=== PATIENT | female | born 1945 | race Caucasian/White ===

== ENCOUNTER 2021-06-05 08:06 | Outpatient (CLI) | payer MEDICARE, OTHER, SELFPAY ==
[2021-06-05 19:26] LABS: Basophils Absolute Auto 0.1 K/mm3 (0.0-0.1); Basophils Percent Auto 1.1 % (0.2-1.2); Eosinophils Absolute Auto 0.2 K/mm3 (0-0.3); Hematocrit 32.7 % (37.0-47.0); Hemoglobin 9.1 g/dL (12.0-15.0); Immature Granulocyte Absolute 0.02 K/mm3 (0.00-0.031); Immature Granulocyte Percent A 0.2 % (0-0.5); Lymphocytes Absolute Auto 2.43 K/mm3 (0.9-3.2); Lymphocytes Percent Auto 29.1 % (18.3-44.2); Mean Corpuscular HGB Conc 27.8 g/dl (32-36); Mean Corpuscular Hemoglobin 23.6 pg (26-34); Mean Corpuscular Volume 84.7 fl (80-100); Mean Platelet Volume 10.5 fl (7.4-10.4); Monocytes Absolute Auto 0.8 K/mm3 (0.1-0.6); Neutrophils Absolute Auto 4.9 K/mm3 (1.3-6.7); Neutrophils Percent Auto 58.6 % (45.5-73.1); Platelet Count Result 291 k/mm3 (150-375); Red Blood Count 3.86 M/mm3 (4.2-5.4); Red Cell Distribution Width 15.6 % (11.5-14.5); White Blood Count 8.3 K/mm3 (4.5-10.0)
[2021-06-05 19:36] LABS: Hemoglobin A1C 7.9 % (<5.7)
[2021-06-05 19:37] LABS: Alanine Aminotransferase 11 U/L (4-35); Albumin Level 3.6 g/dL (3.5-5.1); Alkaline Phosphatase 74 U/L (38-126); Anion Gap 5 mmol/L (8-16); Aspartate Amino Transferase 16 U/L (14-36); Bilirubin,Total 0.3 mg/dL (0.2-1.3); Blood Urea Nitrogen 18 mg/dL (7-17); Carbon Dioxide 29 mmol/L (22-30); Chloride 102 mmol/L (98-107); Cholesterol 239 mg/dL (0-200); Estimated Glomerular Filt Rate > 60; Glucose 119 mg/dL (65-110); HDL Direct 45 mg/dL; Potassium 4.6 mmol/L (3.4-5.0); Sodium 136 mmol/L (137-145); Triglycerides 128 mg/dL (<150)
[2021-06-05 19:41] LABS: Hypochromasia 1+ (NORMAL); Platelet Estimate Adequate (Adequate)
[2021-06-05 19:42] LABS: Anisocytosis 2+ (NORMAL)
[2021-06-05 19:45] LABS: Rheumatoid Factor < 8.6 IU/ML (<12)
[2021-06-05 19:48] LABS: LDL Cholesterol Direct 151 mg/dL
[2021-06-05 19:56] LABS: Creatinine Urine 96.7 mg/dL
[2021-06-05 20:01] LABS: MALB Creatinine Ratio 20.3 mg/g (0-30); Microalbumin Urine Random 19.6 mg/L (0-16.7)
[2021-06-08 10:09] LABS: Anti Cyclic Citrullinated Pept <16 Units (<20)
== END 2021-06-05 08:07 | disposition home or self-care (01) ==
PROVIDERS: PCP Family Medicine; Visit Provider Family Medicine
DX: E11.9 Type 2 diabetes mellitus without complications (principal); E78.5 Hyperlipidemia, unspecified; I25.10 Atherosclerotic heart disease of native coronary artery without angina pectoris; M19.90 Unspecified osteoarthritis, unspecified site; Z79.4 Long term (current) use of insulin; R53.83 Other fatigue
CPT/HCPCS: 36415; 80053; 80061; 82043; 83036; 84443; 85025; 86038; 86200; 86430

== ENCOUNTER 2021-06-07 11:33 | Outpatient (CLI) | payer MEDICARE, OTHER, SELFPAY ==
[2021-06-07 19:50] LABS: Basophils Absolute Auto 0.1 K/mm3 (0.0-0.1); Basophils Percent Auto 0.9 % (0.2-1.2); Eosinophils Absolute Auto 0.2 K/mm3 (0-0.3); Hematocrit 30.7 % (37.0-47.0); Immature Granulocyte Absolute 0.03 K/mm3 (0.00-0.031); Immature Granulocyte Percent A 0.4 % (0-0.5); Immature Reticulocyte Fraction 26.2 % (3.0-15.9); Lymphocytes Absolute Auto 2.03 K/mm3 (0.9-3.2); Lymphocytes Percent Auto 27.4 % (18.3-44.2); Mean Corpuscular HGB Conc 29.3 g/dl (32-36); Mean Corpuscular Hemoglobin 23.7 pg (26-34); Mean Platelet Volume 10.5 fl (7.4-10.4); Monocytes Absolute Auto 0.7 K/mm3 (0.1-0.6); Monocytes Percent Auto 9.1 % (2.6-8.5); Neutrophils Absolute Auto 4.5 K/mm3 (1.3-6.7); Neutrophils Percent Auto 60.2 % (45.5-73.1); Platelet Count Result 278 k/mm3 (150-375); Red Blood Count 3.79 M/mm3 (4.2-5.4); Red Cell Distribution Width 15.3 % (11.5-14.5); Reticulocyte Percent 1.67 % (0.7-4.3); Reticulocytes Absolute 0.06 B/L (32.2-175.7); White Blood Count 7.4 K/mm3 (4.5-10.0)
[2021-06-07 19:55] LABS: Iron 29 ug/dL (37-170)
[2021-06-07 20:04] LABS: Percent Iron Saturation 7 % (20-50)
== END 2021-06-07 11:34 | disposition home or self-care (01) ==
PROVIDERS: PCP Family Medicine; Visit Provider Family Medicine
DX: D64.9 Anemia, unspecified (principal)
CPT/HCPCS: 36415; 82607; 83540; 83550; 85025; 85046

== ENCOUNTER 2021-08-27 13:56 | Outpatient (CLI) | payer MEDICARE, OTHER, SELFPAY ==
[2021-08-27 14:16] LABS: Basophils Absolute Auto 0.1 K/mm3 (0.0-0.1); Basophils Percent Auto 0.6 % (0.2-1.2); Eosinophils Absolute Auto 0.2 K/mm3 (0-0.3); Eosinophils Percent Auto 1.4 % (0-4.4); Hemoglobin 9.5 g/dL (12.0-15.0); Immature Granulocyte Absolute 0.06 K/mm3 (0.00-0.031); Immature Granulocyte Percent A 0.5 % (0-0.5); Lymphocytes Absolute Auto 2.52 K/mm3 (0.9-3.2); Lymphocytes Percent Auto 22.7 % (18.3-44.2); Mean Corpuscular HGB Conc 29.7 g/dl (32-36); Mean Corpuscular Hemoglobin 23.5 pg (26-34); Mean Corpuscular Volume 79.2 fl (80-100); Monocytes Percent Auto 8.7 % (2.6-8.5); Neutrophils Absolute Auto 7.3 K/mm3 (1.3-6.7); Neutrophils Percent Auto 66.1 % (45.5-73.1); Platelet Count Result 303 k/mm3 (150-375); Red Blood Count 4.04 M/mm3 (4.2-5.4); Red Cell Distribution Width 15.7 % (11.5-14.5); White Blood Count 11.1 K/mm3 (4.5-10.0)
[2021-08-27 16:29] LABS: Iron 22 ug/dL (37-170)
[2021-08-27 16:30] LABS: Alanine Aminotransferase 16 U/L (4-35); Albumin Level 3.9 g/dL (3.5-5.1); Alkaline Phosphatase 76 U/L (38-126); Anion Gap 5 mmol/L (8-16); Aspartate Amino Transferase 21 U/L (14-36); Bilirubin,Total 0.4 mg/dL (0.2-1.3); Blood Urea Nitrogen 18 mg/dL (7-17); Calcium 9.2 mg/dL (8.4-10.2); Carbon Dioxide 31 mmol/L (22-30); Chloride 101 mmol/L (98-107); Estimated Glomerular Filt Rate 54; Glucose 131 mg/dL (65-110); Sodium 137 mmol/L (137-145)
[2021-08-27 16:40] LABS: Percent Iron Saturation 5 % (20-50)
[2021-08-27 17:06] LABS: Ferritin 7.53 ng/mL (11.1-264)
[2021-08-27 17:37] LABS: Folic Acid 11.9 ng/mL (2.76->20)
[2021-08-27 23:10] LABS: Vitamin D 25 Hydroxy 60.2 ng/mL
== END 2021-08-27 13:57 | disposition home or self-care (01) ==
PROVIDERS: PCP Family Medicine; Visit Provider Internal Medicine Hematology & Oncology
DX: D64.9 Anemia, unspecified (principal); E55.9 Vitamin D deficiency, unspecified
CPT/HCPCS: 36415; 80053; 82306; 82607; 82728; 82746; 83540; 83550; 84443; 85025

== ENCOUNTER 2021-09-05 13:45 | Outpatient (CLI) | payer MEDICARE, OTHER, SELFPAY | END 2021-09-05 13:46 | disposition home or self-care (01) | PROVIDERS: PCP Family Medicine; Visit Provider Family Medicine | DX: E11.9 Type 2 diabetes mellitus without complications (principal); Z79.4 Long term (current) use of insulin | CPT/HCPCS: 36415; 83036 ==

== ENCOUNTER 2021-11-13 10:14 | Outpatient (CLI) | payer MEDICARE, OTHER, SELFPAY ==
[2021-11-13 19:01] LABS: Hematocrit 38.8 % (37.0-47.0); Mean Corpuscular HGB Conc 30.9 g/dl (32-36); Mean Corpuscular Volume 90.7 fl (80-100); Mean Platelet Volume 10.1 fl (7.4-10.4); Platelet Count Result 234 k/mm3 (150-375); Red Blood Count 4.28 M/mm3 (4.2-5.4); Red Cell Distribution Width 19.3 % (11.5-14.5)
[2021-11-13 19:08] LABS: Iron 78 ug/dL (37-170)
[2021-11-13 19:18] LABS: Percent Iron Saturation 25 % (20-50)
[2021-11-13 20:20] LABS: Folic Acid 19.6 ng/mL (2.76->20); Vitamin B12 > 1000.0 pg/mL (239-931)
== END 2021-11-13 10:15 | disposition home or self-care (01) ==
PROVIDERS: PCP Family Medicine; Visit Provider Internal Medicine Hematology & Oncology
DX: D64.9 Anemia, unspecified (principal)
CPT/HCPCS: 36415; 82607; 82728; 82746; 83540; 83550; 85027

== ENCOUNTER 2021-12-06 14:26 | Outpatient (CLI) | payer MEDICARE, OTHER, SELFPAY ==
[2021-12-06 20:21] LABS: Anion Gap 4 mmol/L (8-16); Blood Urea Nitrogen 14 mg/dL (7-17); Calcium 9.1 mg/dL (8.4-10.2); Carbon Dioxide 32 mmol/L (22-30); Chloride 103 mmol/L (98-107); Estimated Glomerular Filt Rate > 60; Glucose 121 mg/dL (65-110); Potassium 4.2 mmol/L (3.4-5.0); Sodium 139 mmol/L (137-145)
[2021-12-06 20:59] LABS: Hemoglobin A1C 6.7 % (<5.7)
== END 2021-12-06 14:27 | disposition home or self-care (01) ==
PROVIDERS: PCP Family Medicine; Visit Provider Family Medicine
DX: E11.9 Type 2 diabetes mellitus without complications (principal); R94.4 Abnormal results of kidney function studies
CPT/HCPCS: 36415; 80048; 83036

== ENCOUNTER → 2022-01-23 02:54 | Outpatient (CLI) | payer MEDICARE, OTHER, SELFPAY ==
[2022-01-23 12:56] LABS: Influenza A QL RT-PCR Negative (Negative); Influenza B QL RT-PCR Negative (Negative); SARS-CoV-2 RNA PCR Negative
== END ==
PROVIDERS: PCP Family Medicine; Visit Provider Family Medicine
DX: J02.9 Acute pharyngitis, unspecified (principal); Z20.822 Contact with and (suspected) exposure to COVID-19
CPT/HCPCS: 87502; C9803; U0003; U0005

== ENCOUNTER 2022-02-13 00:09 | Day surgery (SDC) | payer MEDICARE, OTHER, SELFPAY ==
[2021-11-08 13:49] VITALS: BMI 44.2
[2021-12-28 15:11] VITALS: BMI 43.2
[2022-01-15 13:53] VITALS: BMI 43.2
[2022-02-01 10:04] VITALS: BMI 43.2
--- NOTE | 2022-02-13 09:14 | WPDANESEPPF ---
Anes - Initial Pre Proc Eval Procedure: Operation Date: 02/13/22 13:15 Proposed Procedures p Esophagogastroduodenoscopy & Colonoscopy - Hector Burrell MD Date/Time: 02/13/22 09:14 Surgeon: Hector Burrell MD Pre Op Diagnosis: TABATHA Patient Data Age: 76 Gender: F Height: 1.75 m Weight: 133 kg Allergies Allergy/AdvReac Type Severity Reaction Status Date / Time morphine Allergy Unknown Other Verified 02/13/22 11:53 Bqlcupb-PYK-SvA Reductase Allergy Unknown Unknown Verified 02/13/22 11:53 Inhibitor [Fjoyewr-Yoq-Sqx Reductase Inhibitor] Home Medications Medication Instructions Recorded Confirmed Type aspirin 81 mg tablet,delayed 81 mg PO DAILY 10/05/19 02/13/22 History release cholecalciferol (vitamin D3) 125 5,000 unit PO DAILY tablet 10/05/19 02/13/22 History mcg (5,000 unit) tablet omega-3 fatty acids 1,000 mg 1,000 mg PO BID 10/05/19 02/13/22 History capsule metformin 1,000 mg tablet 1,000 mg PO BID #180 tablet 06/04/21 02/13/22 Rx insulin NPH and regular human 33 unit SUB-Q BID 11/08/21 02/13/22 History [Novolin 70/30 U-100 Insulin] amlodipine 2.5 mg tablet 2.5 mg PO DAILY #90 tablet 11/22/21 02/13/22 Rx losartan 100 1 tablet PO DAILY #90 tablet 11/22/21 02/13/22 Rx mg-hydrochlorothiazide 25 mg tablet blood pressure test kit-large #1 ea 12/06/21 02/13/22 Rx clobetasol 0.05 % topical cream 1 applic TOPICAL BID 14 Days #30 g 12/17/21 02/13/22 Rx nystatin 100,000 unit/gram topical 1 applic TOPICAL BID PRN #15 g 12/17/21 02/13/22 Rx powder clonazepam [Klonopin] 0.25 mg PO QHS PRN 12/28/21 02/13/22 History folic acid 1 tab-cap PO DAILY 12/28/21 02/13/22 History nystatin-triamcinolone 100,000 1 applic TOPICAL BID PRN #30 g 01/14/22 02/13/22 Rx unit/g-0.1 % topical cream albuterol sulfate 90 mcg/actuation 1 inh INHALATION Q4H PRN #8.5 g 01/24/22 02/13/22 Rx aerosol inhaler azithromycin 250 mg tablet See Rx Instructions PO .COMPLEX #6 01/24/22 02/13/22 Rx tablet guaifenesin 1,200 mg tablet, 1,200 mg PO BID #30 tablet 01/24/22 02/13/22 Rx extended release 12 hr pantoprazole 40 mg tablet,delayed 40 mg PO BID #180 tablet 02/10/22 02/13/22 Rx release Patient hx anesthesia problems: none Family hx anesthesia problems: none Results Review: All pre-operative results and documents have been reviewed as part of the pre-operative evaluation. [facility] Past Medical History Medical History (Updated 02/13/22 @ 09:16 by Ronn Pat MD) Allergies Arthritis Congestive heart failure COPD (chronic obstructive pulmonary disease) Coronary artery disease Depression Dyslipidemia Endometriosis Femur fracture GERD (gastroesophageal reflux disease) Hypertension Morbid obesity with BMI of 40.0-44.9, adult EDWIN (obstructive sleep apnea) Rheumatoid arthritis Type 2 diabetes mellitus Surgical History Surgical History (Updated 02/13/22 @ 09:16 by Ronn Pat MD) H/O dilation and curettage H/O heart artery stent H/O heart bypass surgery H/O total hysterectomy History of cholecystectomy History of hip surgery S/P CABG (coronary artery bypass graft) Family History Family History Grandparent Diabetes mellitus Family history of cardiovascular disease Family history of malignant neoplasm Breast cancer Mother Diabetes mellitus Family history of chronic obstructive pulmonary disease Family history of congestive heart failure Father Family history of cardiovascular disease Sibling Breast cancer Hypertension Heart disease Social History Social History Smoking packs per day: 1 Smoking cigarettes per day: 20.0 Years smoked: 33 Smoking pack-years: 33.00 Smoking status: Former smoker Tobacco type: cigarettes Second hand tobacco smoke exposure: No Alcohol intake: never Substance use: never Substance u
[2022-02-13 11:54] VITALS: BP 192/85; PULSE 103; RESP 22; TEMP 36.8; O2SAT 98; BMI 42.7
[2022-02-13 12:01] LABS: Glucose Point of Care 186 mg/dl (65-105)
[2022-02-13] MEDS: LACTATED RINGERS 1,000 ML 150 ML IV CONT (12:13)
--- NOTE | 2022-02-13 13:09 | PM.HPGS ---
History of Present Illness History of Present Illness Consent: Risks, benefits, and alternatives have been discussed and questions answered. Patient agrees to proceed with procedure. Chief complaint: ASYA Narrative: Kristie Mckay is a 76 year old female with asya, also loose stools and if she does not make it on time to restroom then will have accident. Her last EGD and colonoscopy were in 2010 Review of Systems Constitutional: Constitutional: Denies headache(s) and Denies weakness Eyes: Eyes: Denies blurry vision ENT: Reports Normal hearing present, Denies headache(s) and Denies neck pain Cardiovascular: Cardiovascular: Denies chest pain and Denies dyspnea Respiratory: Respiratory: Denies dyspnea Gastrointestinal: Gastrointestinal: Reports no additional gastrointestinal complaints Genitourinary: Genitourinary: Denies dysuria Musculoskeletal: Musculoskeletal: Denies neck pain Integumentary/Breasts: Skin/Breast: Denies dry skin Neurologic: Reports Normal hearing present, Denies headache(s) and Denies weakness Psychiatric: Psychiatric: Denies anxiety Endocrine: Endocrine: Denies change in body appearance Hematologic/Lymphatic: Hematologic/Lymphatic: Denies easy bleeding Allergic/Immunologic: Allergic/Immunologic: Denies urticaria PMFSH Past Medical History Medical History (Updated 02/13/22 @ 09:16 by oRnn Pat MD) Allergies Arthritis Congestive heart failure COPD (chronic obstructive pulmonary disease) Coronary artery disease Depression Dyslipidemia Endometriosis Femur fracture GERD (gastroesophageal reflux disease) Hypertension Morbid obesity with BMI of 40.0-44.9, adult EDWIN (obstructive sleep apnea) Rheumatoid arthritis Type 2 diabetes mellitus Surgical History Surgical History (Updated 02/13/22 @ 09:16 by Ronn Pat MD) H/O dilation and curettage H/O heart artery stent H/O heart bypass surgery H/O total hysterectomy History of cholecystectomy History of hip surgery S/P CABG (coronary artery bypass graft) Family History Family History Grandparent Diabetes mellitus Family history of cardiovascular disease Family history of malignant neoplasm Breast cancer Mother Diabetes mellitus Family history of chronic obstructive pulmonary disease Family history of congestive heart failure Father Family history of cardiovascular disease Sibling Breast cancer Hypertension Heart disease Social History Social History Smoking packs per day: 1 Smoking cigarettes per day: 20.0 Years smoked: 33 Smoking pack-years: 33.00 Smoking status: Former smoker Tobacco type: cigarettes Second hand tobacco smoke exposure: No Alcohol intake: never Substance use: never Substance use type: does not use Living arrangements: with family Spiritual care concerns: No Meds Home Medications and Allergies Home Medications Medication Instructions Recorded Confirmed Type aspirin 81 mg tablet,delayed 81 mg PO DAILY 10/05/19 02/13/22 History release cholecalciferol (vitamin D3) 125 5,000 unit PO DAILY tablet 10/05/19 02/13/22 History mcg (5,000 unit) tablet omega-3 fatty acids 1,000 mg 1,000 mg PO BID 10/05/19 02/13/22 History capsule metformin 1,000 mg tablet 1,000 mg PO BID #180 tablet 06/04/21 02/13/22 Rx insulin NPH and regular human 33 unit SUB-Q BID 11/08/21 02/13/22 History [Novolin 70/30 U-100 Insulin] amlodipine 2.5 mg tablet 2.5 mg PO DAILY #90 tablet 11/22/21 02/13/22 Rx losartan 100 1 tablet PO DAILY #90 tablet 11/22/21 02/13/22 Rx mg-hydrochlorothiazide 25 mg tablet blood pressure test kit-large #1 ea 12/06/21 02/13/22 Rx clobetasol 0.05 % topical cream 1 applic TOPICAL BID 14 Days #30 g 12/17/21 02/13/22 Rx nystatin 100,000 unit/gram topical 1 applic TOPICAL BID PRN #15 g 12/17/21 02/13/22 Rx powder clonazepam [Klonopin] 0.
[2022-02-13] MEDS: BENZOCAINE (*SP) 60 ML SPRAY CAN (HURRICAINE) 1 SPRAY MUCOUS MEM (13:14)
--- NOTE | 2022-02-13 13:26 | SUR.OPER ---
EGD ENDED AT 1319, COLONOSCOPY BEGAN AT 1324.
[2022-02-13 13:48] VITALS: BP 133/63; PULSE 92; RESP 33; O2SAT 97
[2022-02-13 13:58] VITALS: BP 133/72; PULSE 92; RESP 22; O2SAT 98
[2022-02-13 14:08] VITALS: BP 152/73; PULSE 83; RESP 17; O2SAT 100
[2022-02-13 14:14] LABS: Glucose Point of Care 179 mg/dl (65-105)
== END 2022-02-13 14:25 | disposition home or self-care (01) ==
PROVIDERS: PCP Family Medicine; Visit Provider Internal Medicine Gastroenterology
PROC: 0DJ08ZZ Inspection of Upper Intestinal Tract, Via Natural or Artificial Opening Endoscopic (ICD-10-PCS; CPT 43235; principal; 2022-02-13 13:15)
DX: Z12.11 Encounter for screening for malignant neoplasm of colon (principal); D50.9 Iron deficiency anemia, unspecified; R15.9 Full incontinence of feces; K57.30 Diverticulosis of large intestine without perforation or abscess without bleeding; K64.8 Other hemorrhoids; D12.2 Benign neoplasm of ascending colon; D12.3 Benign neoplasm of transverse colon; I11.0 Hypertensive heart disease with heart failure; I50.9 Heart failure, unspecified; I25.10 Atherosclerotic heart disease of native coronary artery without angina pectoris; J44.9 Chronic obstructive pulmonary disease, unspecified; E78.5 Hyperlipidemia, unspecified; K21.9 Gastro-esophageal reflux disease without esophagitis; E11.9 Type 2 diabetes mellitus without complications; M06.9 Rheumatoid arthritis, unspecified; G47.33 Obstructive sleep apnea (adult) (pediatric); F32.9 Major depressive disorder, single episode, unspecified; E66.01 Morbid (severe) obesity due to excess calories; Z68.41 Body mass index [BMI] 40.0-44.9, adult; Z95.5 Presence of coronary angioplasty implant and graft; Z95.1 Presence of aortocoronary bypass graft; Z87.891 Personal history of nicotine dependence; Z79.82 Long term (current) use of aspirin; Z79.84 Long term (current) use of oral hypoglycemic drugs; Z79.4 Long term (current) use of insulin; Z79.51 Long term (current) use of inhaled steroids
CPT/HCPCS: 45385; 45380; 43239; 82948; 88305; J2704; J7120

== ENCOUNTER 2022-02-18 13:12 | Outpatient (CLI) | payer MEDICARE, OTHER, SELFPAY ==
[2022-02-18 18:45] LABS: Basophils Absolute Auto 0.1 K/mm3 (0.0-0.1); Basophils Percent Auto 0.8 % (0.2-1.2); Eosinophils Absolute Auto 0.3 K/mm3 (0-0.3); Eosinophils Percent Auto 2.8 % (0-4.4); Hematocrit 38.7 % (37.0-47.0); Hemoglobin 12.7 g/dL (12.0-15.0); Immature Granulocyte Absolute 0.03 K/mm3 (0.00-0.031); Immature Granulocyte Percent A 0.3 % (0-0.5); Lymphocytes Absolute Auto 2.36 K/mm3 (0.9-3.2); Lymphocytes Percent Auto 26.7 % (18.3-44.2); Mean Corpuscular HGB Conc 32.8 g/dl (32-36); Mean Corpuscular Hemoglobin 30.5 pg (26-34); Mean Platelet Volume 10.3 fl (7.4-10.4); Monocytes Absolute Auto 0.8 K/mm3 (0.1-0.6); Monocytes Percent Auto 9.5 % (2.6-8.5); Neutrophils Absolute Auto 5.3 K/mm3 (1.3-6.7); Neutrophils Percent Auto 59.9 % (45.5-73.1); Platelet Count Result 216 k/mm3 (150-375); Red Blood Count 4.16 M/mm3 (4.2-5.4); Red Cell Distribution Width 13.3 % (11.5-14.5); White Blood Count 8.8 K/mm3 (4.5-10.0)
[2022-02-18 19:00] LABS: Iron 75 ug/dL (37-170)
[2022-02-18 19:09] LABS: Percent Iron Saturation 22 % (20-50)
[2022-02-18 20:26] LABS: Folic Acid > 20.0 ng/mL (2.76->20)
== END 2022-02-18 13:13 | disposition home or self-care (01) ==
LOC: ANHBWCLAB 13:15
PROVIDERS: PCP Family Medicine; Visit Provider Internal Medicine Hematology & Oncology
DX: D64.9 Anemia, unspecified (principal)
CPT/HCPCS: 36415; 82607; 82728; 82746; 83540; 83550; 85025

== ENCOUNTER 2022-07-29 08:40 | Outpatient (CLI) | payer MEDICARE, OTHER, SELFPAY ==
[2022-07-29 19:50] LABS: Anion Gap 6 mmol/L (8-16); Blood Urea Nitrogen 18 mg/dL (7-17); Calcium 9.1 mg/dL (8.4-10.2); Carbon Dioxide 31 mmol/L (22-30); Chloride 99 mmol/L (98-107); Estimated Glomerular Filt Rate 54; Glucose 137 mg/dL (65-110); Potassium 4.6 mmol/L (3.4-5.0); Sodium 136 mmol/L (137-145)
[2022-07-29 20:06] LABS: Iron 97 ug/dL (37-170)
[2022-07-29 20:31] LABS: Percent Iron Saturation 25 % (20-50)
[2022-07-29 20:47] LABS: Basophils Absolute Auto 0.1 K/mm3 (0.0-0.1); Basophils Percent Auto 0.8 % (0.2-1.2); Eosinophils Absolute Auto 0.2 K/mm3 (0-0.3); Hematocrit 41.2 % (37.0-47.0); Hemoglobin 12.8 g/dL (12.0-15.0); Immature Granulocyte Absolute 0.02 K/mm3 (0.00-0.031); Immature Granulocyte Percent A 0.2 % (0-0.5); Lymphocytes Absolute Auto 2.46 K/mm3 (0.9-3.2); Lymphocytes Percent Auto 27.4 % (18.3-44.2); Mean Corpuscular HGB Conc 31.1 g/dl (32-36); Mean Corpuscular Hemoglobin 30.2 pg (26-34); Mean Corpuscular Volume 97.2 fl (80-100); Mean Platelet Volume 10.4 fl (7.4-10.4); Monocytes Absolute Auto 0.8 K/mm3 (0.1-0.6); Monocytes Percent Auto 8.7 % (2.6-8.5); Neutrophils Absolute Auto 5.5 K/mm3 (1.3-6.7); Neutrophils Percent Auto 60.9 % (45.5-73.1); Platelet Count Result 267 k/mm3 (150-375); Red Blood Count 4.24 M/mm3 (4.2-5.4); Red Cell Distribution Width 13.5 % (11.5-14.5)
[2022-07-29 21:31] LABS: Folic Acid > 20.0 ng/mL (2.76->20)
== END 2022-07-29 08:41 | disposition home or self-care (01) ==
PROVIDERS: PCP Family Medicine; Visit Provider Internal Medicine Hematology & Oncology
DX: D64.9 Anemia, unspecified (principal)
CPT/HCPCS: 36415; 80048; 82607; 82728; 82746; 83540; 83550; 85025

== ENCOUNTER 2022-09-27 07:47 | Outpatient (CLI) | payer MEDICARE, OTHER, SELFPAY ==
[2022-09-27 19:13] LABS: Iron 57 ug/dL (37-170)
[2022-09-27 19:18] LABS: Hemoglobin A1C 7.2 % (<5.7)
[2022-09-27 19:22] LABS: Percent Iron Saturation 15 % (20-50)
[2022-09-27 19:29] LABS: Creatinine Urine 198.6 mg/dL
[2022-09-27 19:35] LABS: MALB Creatinine Ratio 7.6 mg/g (0-30)
== END 2022-09-27 07:48 | disposition home or self-care (01) ==
PROVIDERS: PCP Family Medicine; Visit Provider Internal Medicine Cardiovascular Disease
DX: E53.8 Deficiency of other specified B group vitamins (principal); I45.10 Unspecified right bundle-branch block; K57.30 Diverticulosis of large intestine without perforation or abscess without bleeding; G62.9 Polyneuropathy, unspecified; Z13.9 Encounter for screening, unspecified; E61.1 Iron deficiency; I50.32 Chronic diastolic (congestive) heart failure
CPT/HCPCS: 36415; 82043; 82728; 83036; 83540; 83550

== ENCOUNTER 2022-10-22 12:41 | Outpatient (NON) | payer MEDICARE, OTHER, SELFPAY | END 2022-10-22 12:42 | disposition home or self-care (01) | LOC: ANHLAB 10-23 12:42 | PROVIDERS: PCP Family Medicine; Visit Provider Nurse Practitioner | DX: N60.81 Other benign mammary dysplasias of right breast (principal); L57.0 Actinic keratosis | CPT/HCPCS: 88305 ==

== ENCOUNTER 2022-11-05 16:12 | Outpatient (NON) | payer MEDICARE, OTHER, SELFPAY | END 2022-11-05 16:13 | disposition home or self-care (01) | LOC: ANHLAB 11-06 16:15 | PROVIDERS: PCP Family Medicine; Visit Provider Nurse Practitioner | DX: L72.8 Other follicular cysts of the skin and subcutaneous tissue (principal) | CPT/HCPCS: 88304; 88342 ==

== ENCOUNTER 2023-02-20 11:50 | Outpatient (CLI) | payer MEDICARE, OTHER, SELFPAY ==
[2023-02-20 19:46] LABS: Hemoglobin A1C 6.3 % (<5.7)
== END 2023-02-20 11:51 | disposition home or self-care (01) ==
PROVIDERS: PCP Family Medicine; Visit Provider Nurse Practitioner Family
DX: E11.9 Type 2 diabetes mellitus without complications (principal)
CPT/HCPCS: 36415; 83036

== ENCOUNTER 2023-03-12 09:44 | Outpatient (CLI) | payer MEDICARE, OTHER, SELFPAY ==
[2023-03-12 19:46] LABS: Basophils Absolute Auto 0.1 K/mm3 (0.0-0.1); Basophils Percent Auto 0.9 % (0.2-1.2); Eosinophils Absolute Auto 0.2 K/mm3 (0-0.3); Eosinophils Percent Auto 2.6 % (0-4.4); Hematocrit 38.9 % (37.0-47.0); Hemoglobin 11.9 g/dL (12.0-15.0); Immature Granulocyte Absolute 0.04 K/mm3 (0.00-0.031); Immature Granulocyte Percent A 0.5 % (0-0.5); Lymphocytes Absolute Auto 2.14 K/mm3 (0.9-3.2); Lymphocytes Percent Auto 26.2 % (18.3-44.2); Mean Corpuscular HGB Conc 30.6 g/dl (32-36); Mean Corpuscular Hemoglobin 29.5 pg (26-34); Mean Corpuscular Volume 96.5 fl (80-100); Mean Platelet Volume 10.4 fl (7.4-10.4); Monocytes Absolute Auto 0.7 K/mm3 (0.1-0.6); Monocytes Percent Auto 8.6 % (2.6-8.5); Neutrophils Percent Auto 61.2 % (45.5-73.1); Platelet Count Result 238 k/mm3 (150-375); Red Blood Count 4.03 M/mm3 (4.2-5.4); Red Cell Distribution Width 13.3 % (11.5-14.5); White Blood Count 8.2 K/mm3 (4.5-10.0)
[2023-03-12 20:27] LABS: Iron 58 ug/dL (37-170)
[2023-03-12 20:36] LABS: Percent Iron Saturation 15 % (20-50)
[2023-03-12 21:42] LABS: Folic Acid 14.8 ng/mL (2.76->20)
== END 2023-03-12 09:45 | disposition home or self-care (01) ==
PROVIDERS: PCP Family Medicine; Visit Provider Internal Medicine Hematology & Oncology
DX: D50.9 Iron deficiency anemia, unspecified (principal); E55.9 Vitamin D deficiency, unspecified
CPT/HCPCS: 36415; 82607; 82728; 82746; 83540; 83550; 85025

== ENCOUNTER 2023-04-21 14:48 | Outpatient (CLI) | payer MEDICARE, OTHER, SELFPAY ==
--- NOTE | ~2023-04-21 | XR_ITS ---
XR hip LT min 2V DATE: 04/21/2023 15:18 INDICATION: Left hip pain TECHNIQUE: AP and lateral views COMPARISON: None FINDINGS: Bony detail is limited due to body habitus. No fracture or dislocation or bone destruction of the left hip is evident. If further detail is required, consider CT or MR imaging. IMPRESSION: Limited examination. Reviewed, dictated and finalized at location A. IMPRESSION: Limited examination.
--- NOTE | ~2023-04-21 | XR_ITS ---
XR lumbar spine 2-3V DATE: 04/21/2023 15:18 INDICATION: Low back pain, left hip pain TECHNIQUE: AP, lateral, coned lateral lumbosacral views COMPARISON: None FINDINGS: There is osteopenia. There is approximately 30 degrees rotatory levoscoliosis of the lumbar spine. There is moderate anterior wedge compression fracture deformity at T11 and to a greater extent T12. No lumbar spine fracture is evident. Moderately severe degenerative disease at multiple levels of the lumbar spine. The sacral iliac joints are intact. Status post sternotomy. There is extensive calcification as well as aortic and iliac arteries. IMPRESSION: Osteopenia Moderate anterior wedge compression fracture from is a T11 and to a greater extent T12 30 degrees rotatory levoscoliosis Severe multilevel degenerative disc disease Reviewed, dictated and finalized at location A. IMPRESSION: Osteopenia Moderate anterior wedge compression fracture from is a T11 and to a greater ext ent T12 30 degrees rotatory levoscoliosis Severe multilevel degenerative disc disease
== END 2023-04-21 14:49 | disposition home or self-care (01) ==
LOC: ANHBWCIMG 14:50
PROVIDERS: PCP Family Medicine; Visit Provider Family Medicine
DX: M25.559 Pain in unspecified hip (principal); M51.34 Other intervertebral disc degeneration, thoracic region; M54.50 Low back pain, unspecified; M54.9 Dorsalgia, unspecified; M70.60 Trochanteric bursitis, unspecified hip; M85.88 Other specified disorders of bone density and structure, other site; M41.9 Scoliosis, unspecified
CPT/HCPCS: 72100; 73502

== ENCOUNTER → 2023-04-23 13:58 | Outpatient (CLI) | payer MEDICARE, OTHER, SELFPAY ==
--- NOTE | ~2023-04-23 | MR_ITS ---
EXAMINATION: MR thoracic spine wo con DATE: 04/23/2023 14:55 INDICATION: Age-indeterminate thoracic compression fractures with low back pain. TECHNIQUE: Magnetic resonance imaging (MRI) of the thoracic spine was performed without intravenous c ontrast. Sagittal localizer T1-weighted FSE of the cervicothoracic spine was obtained. Thoracic spine sequences included sagittal T2-weighted FSE, sagittal T1-weighted SE, Sagittal T2-weighted FS FSE, a nd axial T2-weighted FSE. COMPARISON: None FINDINGS: Mild thoracic levocurvature. Sagittal images normal..Chronic T11 compression fracture with 20% anteri or vertebral body height loss and chronic T12 burst fracture with 40% anterior vertebral body height loss and 2-3 mm retrolisthesis along the cephalad aspect of the posterior wall. The latter results in mild central canal stenosis at this level. There are Schmorl's nodes along the superior endplates of both levels. Marrow signal remains normal throughout. Remaining vertebral body heights are normal. M ild disc height loss at T2-3, T5-T6 through T7-T8, T9-T10, T10-T11 and T12-L1. Annular fissures with right paracentral disc protrusions which resulting in mild central canal stenosis and mildly indents the right ventral surface of the cord at T6-T7 and T7-T8. Mild disc bulges at T8-T9 through T10-T11 r esulting in mild central canal stenosis at T8-9-2 in particular additional hypertrophic changes relat ed to severe bilateral facet osteoarthritis at this level. Additional annular fissure and broad-based disc extrusion extending from foraminal zone to foraminal zone with disc material extending couple m illimeter cephalad and caudal to the level of the endplates. This also results in mild central canal stenosis. There is mild bilateral neural foraminal stenosis at multiple levels in the mid and lower t horacic spine resulting from bilateral multilevel moderate to severe thoracic facet osteoarthritis. T here is normal spinal cord signal. The conus terminates below the level of L1. IMPRESSION: 1. Chronic T11 compression fracture and T12 burst fracture. No acute osseous abnormality. 2. Mild thoracic spondylosis. Reviewed, dictated and finalized at location A. IMPRESSION: 1. Chronic T11 compression fracture and T12 burst fracture. No acute osseous ab normality. 2. Mild thoracic spondylosis.
== END ==
PROVIDERS: PCP Family Medicine; Visit Provider Family Medicine
DX: S22.000A Wedge compression fracture of unspecified thoracic vertebra, initial encounter for closed fracture (principal); S22.081A Stable burst fracture of T11-T12 vertebra, initial encounter for closed fracture; M43.04 Spondylolysis, thoracic region
CPT/HCPCS: 72146

== ENCOUNTER 2023-06-13 08:47 | Outpatient (CLI) | payer MEDICARE, OTHER, SELFPAY ==
[2023-06-13 18:28] LABS: Basophils Percent Auto 0.6 % (0.2-1.2); Eosinophils Absolute Auto 0.2 K/mm3 (0-0.3); Eosinophils Percent Auto 2.9 % (0-4.4); Hematocrit 38.1 % (37.0-47.0); Hemoglobin 11.6 g/dL (12.0-15.0); Immature Granulocyte Absolute 0.02 K/mm3 (0.00-0.031); Immature Granulocyte Percent A 0.3 % (0-0.5); Lymphocytes Percent Auto 21.1 % (18.3-44.2); Mean Corpuscular HGB Conc 30.4 g/dl (32-36); Mean Corpuscular Hemoglobin 29.6 pg (26-34); Mean Corpuscular Volume 97.2 fl (80-100); Mean Platelet Volume 10.7 fl (7.4-10.4); Monocytes Absolute Auto 0.6 K/mm3 (0.1-0.6); Neutrophils Absolute Auto 4.4 K/mm3 (1.3-6.7); Neutrophils Percent Auto 66.1 % (45.5-73.1); Platelet Count Result 231 k/mm3 (150-375); Red Blood Count 3.92 M/mm3 (4.2-5.4); Red Cell Distribution Width 13.2 % (11.5-14.5); White Blood Count 6.6 K/mm3 (4.5-10.0)
[2023-06-13 18:40] LABS: Alanine Aminotransferase 15 U/L (6-35); Albumin Level 3.7 g/dL (3.5-5.1); Alkaline Phosphatase 79 U/L (38-126); Anion Gap 6 mmol/L (8-16); Aspartate Amino Transferase 49 U/L (14-36); Bilirubin,Total 0.6 mg/dL (0.2-1.3); Blood Urea Nitrogen 14 mg/dL (7-17); Calcium 8.8 mg/dL (8.4-10.2); Carbon Dioxide 32 mmol/L (22-30); Chloride 99 mmol/L (98-107); Cholesterol 165 mg/dL (0-200); Estimated Glomerular Filt Rate > 60; Glucose 214 mg/dL (65-110); HDL Direct 33 mg/dL; Iron 113 ug/dL (37-170); Potassium 4.3 mmol/L (3.4-5.0); Sodium 137 mmol/L (137-145); Triglycerides 169 mg/dL (<150)
[2023-06-13 18:58] LABS: LDL Cholesterol Direct 86 mg/dL
[2023-06-13 19:02] LABS: Percent Iron Saturation 28 % (20-50)
[2023-06-13 19:10] LABS: Creatinine Urine 86.6 mg/dL
[2023-06-13 19:14] LABS: Microalbumin Urine Random 6.1 mg/L (0-16.7)
[2023-06-13 19:14] LABS: Hemoglobin A1C 7.2 % (<5.7)
[2023-06-13 20:29] LABS: Folic Acid 12.5 ng/mL (2.76->20)
== END 2023-06-13 08:48 | disposition home or self-care (01) ==
PROVIDERS: PCP Family Medicine; Visit Provider Family Medicine
DX: E11.9 Type 2 diabetes mellitus without complications (principal); I10 Essential (primary) hypertension; D50.9 Iron deficiency anemia, unspecified; E78.5 Hyperlipidemia, unspecified
CPT/HCPCS: 36415; 80053; 80061; 82043; 82607; 82728; 82746; 83036; 83540; 83550; 85025

== ENCOUNTER 2023-08-26 13:04 | Outpatient (CLI) | payer MEDICARE, OTHER, SELFPAY ==
[2023-08-26 19:38] LABS: Iron 68 ug/dL (37-170)
[2023-08-26 19:44] LABS: Percent Iron Saturation 20 % (20-50)
[2023-08-26 19:56] LABS: Basophils Absolute Auto 0.1 K/mm3 (0.0-0.1); Basophils Percent Auto 0.8 % (0.2-1.2); Eosinophils Absolute Auto 0.2 K/mm3 (0-0.3); Eosinophils Percent Auto 1.9 % (0-4.4); Hematocrit 36.4 % (37.0-47.0); Hemoglobin 11.4 g/dL (12.0-15.0); Immature Granulocyte Absolute 0.03 K/mm3 (0.00-0.031); Immature Granulocyte Percent A 0.4 % (0-0.5); Lymphocytes Absolute Auto 2.13 K/mm3 (0.9-3.2); Lymphocytes Percent Auto 25.7 % (18.3-44.2); Mean Corpuscular HGB Conc 31.3 g/dl (32-36); Mean Corpuscular Hemoglobin 29.5 pg (26-34); Mean Corpuscular Volume 94.3 fl (80-100); Mean Platelet Volume 10.7 fl (7.4-10.4); Monocytes Absolute Auto 0.6 K/mm3 (0.1-0.6); Monocytes Percent Auto 7.6 % (2.6-8.5); Neutrophils Absolute Auto 5.3 K/mm3 (1.3-6.7); Neutrophils Percent Auto 63.6 % (45.5-73.1); Platelet Count Result 242 k/mm3 (150-375); Red Blood Count 3.86 M/mm3 (4.2-5.4); Red Cell Distribution Width 13.3 % (11.5-14.5); White Blood Count 8.3 K/mm3 (4.5-10.0)
[2023-08-26 23:39] LABS: Folic Acid 6.2 ng/mL (2.76->20)
== END 2023-08-26 13:05 | disposition home or self-care (01) ==
PROVIDERS: PCP Family Medicine; Visit Provider Internal Medicine Hematology & Oncology
DX: D64.9 Anemia, unspecified (principal)
CPT/HCPCS: 36415; 82607; 82728; 82746; 83540; 83550; 85025

== ENCOUNTER 2023-11-25 11:27 | Outpatient (CLI) | payer MEDICARE, OTHER, SELFPAY ==
[2023-11-25 19:51] LABS: Basophils Absolute Auto 0.1 K/mm3 (0.0-0.1); Basophils Percent Auto 0.7 % (0.2-1.2); Eosinophils Absolute Auto 0.2 K/mm3 (0-0.3); Eosinophils Percent Auto 1.8 % (0-4.4); Hematocrit 39.9 % (37.0-47.0); Hemoglobin 12.6 g/dL (12.0-15.0); Immature Granulocyte Absolute 0.03 K/mm3 (0.00-0.031); Immature Granulocyte Percent A 0.3 % (0-0.5); Lymphocytes Absolute Auto 2.42 K/mm3 (0.9-3.2); Lymphocytes Percent Auto 25.1 % (18.3-44.2); Mean Corpuscular HGB Conc 31.6 g/dl (32-36); Mean Corpuscular Hemoglobin 29.6 pg (26-34); Mean Corpuscular Volume 93.7 fl (80-100); Mean Platelet Volume 10.2 fl (7.4-10.4); Monocytes Absolute Auto 0.9 K/mm3 (0.1-0.6); Monocytes Percent Auto 9.1 % (2.6-8.5); Neutrophils Absolute Auto 6.1 K/mm3 (1.3-6.7); Platelet Count Result 235 k/mm3 (150-375); Red Blood Count 4.26 M/mm3 (4.2-5.4); Red Cell Distribution Width 13.2 % (11.5-14.5); White Blood Count 9.7 K/mm3 (4.5-10.0)
[2023-11-25 20:02] LABS: Alanine Aminotransferase 10 U/L (6-35); Albumin Level 3.8 g/dL (3.5-5.1); Alkaline Phosphatase 76 U/L (38-126); Aspartate Amino Transferase 27 U/L (14-36); Bilirubin,Total 0.5 mg/dL (0.2-1.3)
[2023-11-25 20:08] LABS: Iron 75 ug/dL (37-170)
[2023-11-25 20:20] LABS: Percent Iron Saturation 20 % (20-50)
[2023-11-25 20:41] LABS: Hepatitis B Surface Antigen Negative (Negative)
[2023-11-25 20:47] LABS: HAV RESULT Negative (Negative); Hepatitis B Core IgM Result Negative (Negative)
[2023-11-25 20:59] LABS: Hepatitis C Virus Antibody Negative (Negative)
[2023-11-25 21:08] LABS: Folic Acid 4.8 ng/mL (2.76->20)
== END 2023-11-25 11:28 | disposition home or self-care (01) ==
LOC: ANHBWCLAB 11:31
PROVIDERS: PCP Family Medicine; Visit Provider Internal Medicine Hematology & Oncology
DX: Z01.89 Encounter for other specified special examinations (principal); D64.9 Anemia, unspecified; R74.01 Elevation of levels of liver transaminase levels; E11.9 Type 2 diabetes mellitus without complications; G47.00 Insomnia, unspecified; G47.33 Obstructive sleep apnea (adult) (pediatric); I10 Essential (primary) hypertension; J44.9 Chronic obstructive pulmonary disease, unspecified; K21.9 Gastro-esophageal reflux disease without esophagitis; M06.9 Rheumatoid arthritis, unspecified; R53.83 Other fatigue; Z95.1 Presence of aortocoronary bypass graft
CPT/HCPCS: 36415; 80074; 80076; 82607; 82728; 82746; 83540; 83550; 85025

== ENCOUNTER 2023-12-29 14:47 | Outpatient (CLI) | payer MEDICARE, SELFPAY ==
[2023-12-29 21:28] LABS: Hemoglobin A1C 6.1 % (<5.7)
== END 2023-12-29 14:48 | disposition home or self-care (01) ==
LOC: ANHBWCLAB 14:51
PROVIDERS: PCP Family Medicine; Visit Provider Family Medicine
DX: E11.9 Type 2 diabetes mellitus without complications (principal); Z79.4 Long term (current) use of insulin
CPT/HCPCS: 36415; 83036

== ENCOUNTER 2024-02-25 13:06 | Outpatient (CLI) | payer MEDICARE, SELFPAY ==
[2024-02-25 19:20] LABS: Iron 68 ug/dL (37-170)
[2024-02-25 19:20] LABS: Hematocrit 37.7 % (37.0-47.0); Hemoglobin 11.7 g/dL (12.0-15.0); Mean Corpuscular Hemoglobin 30.2 pg (26-34); Mean Corpuscular Volume 97.4 fl (80-100); Mean Platelet Volume 10.3 fl (7.4-10.4); Platelet Count Result 223 k/mm3 (150-375); Red Blood Count 3.87 M/mm3 (4.2-5.4); Red Cell Distribution Width 13.2 % (11.5-14.5); White Blood Count 12.2 K/mm3 (4.5-10.0)
[2024-02-25 19:29] LABS: Percent Iron Saturation 20 % (20-50)
[2024-02-25 20:36] LABS: Folic Acid 6.7 ng/mL (2.76->20)
== END 2024-02-25 13:07 | disposition home or self-care (01) ==
PROVIDERS: PCP Family Medicine; Visit Provider Internal Medicine Hematology & Oncology
DX: D64.9 Anemia, unspecified (principal)
CPT/HCPCS: 36415; 82607; 82728; 82746; 83540; 83550; 85027

== ENCOUNTER 2024-05-17 12:17 | Outpatient (CLI) | payer MEDICARE, SELFPAY ==
[2024-05-17 18:47] LABS: Hematocrit 39.5 % (37.0-47.0); Hemoglobin 12.8 g/dL (12.0-15.0); Mean Corpuscular HGB Conc 32.4 g/dl (32-36); Mean Corpuscular Volume 95.6 fl (80-100); Platelet Count Result 267 k/mm3 (150-375); Red Blood Count 4.13 M/mm3 (4.2-5.4); Red Cell Distribution Width 12.9 % (11.5-14.5); White Blood Count 8.8 K/mm3 (4.5-10.0)
[2024-05-17 18:57] LABS: Iron 76 ug/dL (37-170)
[2024-05-17 19:07] LABS: Percent Iron Saturation 21 % (20-50)
[2024-05-17 19:31] LABS: Creatinine Urine 108.2 mg/dL
[2024-05-17 19:37] LABS: Microalbumin Urine Random 18.4 mg/L (0-16.7)
== END 2024-05-17 12:18 | disposition home or self-care (01) ==
PROVIDERS: PCP Family Medicine; Visit Provider Internal Medicine Hematology & Oncology
DX: E11.9 Type 2 diabetes mellitus without complications (principal); D64.9 Anemia, unspecified
CPT/HCPCS: 36415; 82043; 82607; 82728; 82746; 83036; 83540; 83550; 85027

== ENCOUNTER 2024-11-08 14:56 | Outpatient (CLI) | payer MEDICARE, BC, SELFPAY ==
[2024-11-08 19:49] LABS: Basophils Absolute Auto 0.1 K/mm3 (0.0-0.1); Basophils Percent Auto 0.8 % (0.2-1.2); Eosinophils Absolute Auto 0.2 K/mm3 (0-0.3); Eosinophils Percent Auto 1.8 % (0-4.4); Hematocrit 43.3 % (37.0-47.0); Hemoglobin 13.7 g/dL (12.0-15.0); Immature Granulocyte Absolute 0.03 K/mm3 (0.00-0.031); Immature Granulocyte Percent A 0.3 % (0-0.5); Lymphocytes Absolute Auto 2.54 K/mm3 (0.9-3.2); Lymphocytes Percent Auto 26.8 % (18.3-44.2); Mean Corpuscular HGB Conc 31.6 g/dl (32-36); Mean Corpuscular Hemoglobin 28.7 pg (26-34); Mean Corpuscular Volume 90.6 fl (80-100); Mean Platelet Volume 10.2 fl (7.4-10.4); Monocytes Absolute Auto 0.8 K/mm3 (0.1-0.6); Monocytes Percent Auto 8.5 % (2.6-8.5); Neutrophils Absolute Auto 5.9 K/mm3 (1.3-6.7); Neutrophils Percent Auto 61.8 % (45.5-73.1); Platelet Count Result 267 k/mm3 (150-375); Red Blood Count 4.78 M/mm3 (4.2-5.4); Red Cell Distribution Width 12.7 % (11.5-14.5); White Blood Count 9.5 K/mm3 (4.5-10.0)
[2024-11-08 20:10] LABS: Alanine Aminotransferase 11 U/L (6-35); Albumin Level 3.8 g/dL (3.5-5.1); Alkaline Phosphatase 86 U/L (38-126); Anion Gap 6 mmol/L (4-12); Aspartate Amino Transferase 20 U/L (14-36); Bilirubin,Total 0.7 mg/dL (0.2-1.3); Blood Urea Nitrogen 17 mg/dL (7-17); Calcium 9.2 mg/dL (8.4-10.2); Carbon Dioxide 30 mmol/L (22-30); Chloride 101 mmol/L (98-107); Estimated Glomerular Filt Rate > 60; Glucose 136 mg/dL (65-110); Potassium 4.6 mmol/L (3.4-5.0); Sodium 137 mmol/L (137-145)
[2024-11-08 20:16] LABS: Iron 81 ug/dL (37-170)
[2024-11-08 20:25] LABS: Percent Iron Saturation 24 % (20-50)
[2024-11-08 21:12] LABS: Folic Acid 6.1 ng/mL (2.76->20)
== END 2024-11-08 14:57 | disposition home or self-care (01) ==
PROVIDERS: PCP Family Medicine; Visit Provider Internal Medicine Hematology & Oncology
DX: D64.9 Anemia, unspecified (principal)
CPT/HCPCS: 36415; 80053; 82607; 82728; 82746; 83540; 83550; 85025

== ENCOUNTER 2025-06-17 13:03 | Outpatient (CLI) | payer MEDICARE, SELFPAY ==
--- NOTE | ~2025-06-17 | DEXA_ITS ---
Bone Density Report Name: JOHNNIE BLUE Age: 80 Sex: Female Ethnicity: White Date of : 1945 Indication: postmenopausal; screening for osteoporosis; height loss; prior fracture; hysterectomy; rheumatoid arthritis; secondary osteoporosis; Referring Provider: LAURENT SINGH Study: Bone densitometry was performed. Exam Date: June 17, 2025 Accession number: [id number] Bone Density: Region BMD T-score Z-score Classification AP Spine(L1-L4) 1.059 0.1 2.7 Normal Femoral Neck (Right) 0.807 -0.4 1.8 Normal Total Hip (Right) 0.872 -0.6 1.4 Normal World Health Organization criteria for BMD impression classify patients as: Normal (T-score at or above -1.0), Osteopenia (T-score between -1.0 and -2.5), or Osteoporosis (T-score at or below -2.5). 10-year Fracture Risk: FRAX not reported because: All T-scores for Spine Total, Hip Total, Femoral Neck at or above -1.0 Prior hip or vertebral fracture Clinical Information Provided by Patient: Have had a previous hip or vertebral fracture Has had a low trauma fracture Has rheumatoid arthritis Has secondary osteoporosis Has used the following medications: Vitamin D Has the following medical conditions: Hysterectomy Patient maximum height was 69.5 Menopause Age: 30 No regular weight bearing exercise Does not regularly consume dairy products Drinks caffeinated beverages Onset of menses at age 29 Number of children 1 Impression: The patient has normal bone mass. The patient has risk factors, including: previous fracture. Discussion: INCREASED RISK OF FRACTURE DUE TO HISTORY OF FRACTURE. The patient's previous fracture puts the patient at high risk of a future fracture. In untreated patients, the risk of osteoporotic fracture increases approximately two-fold for each 1.0 SD decrease in T-score. Low bone density is not the only risk factor for fracture; also consider factors such as patient's age, frailty or poor health, risk of falling, risk of injury, previous osteoporotic fracture, family history of osteoporosis, cigarette smoking, low body weight, etc. Not everyone with a low trauma fracture has osteoporosis; osteomalacia and other metabolic bone disorders should also be considered. Patients who have osteoporosis should be evaluated for specific diseases and conditions (secondary causes) that may cause or contribute to bone loss and fracture risk. National Osteoporosis Foundation (NOF) recommends pharmacologic intervention for patients with a prior hip or vertebral fracture regardless of BMD T-score. The patient should follow a healthful lifestyle (good nutrition with adequate calcium and vitamin D, and appropriate weight-bearing exercise). Follow-Up: Consider a repeat BMD and Vertebral Fracture Assessment (VFA) exam in 2 years or sooner if medically necessary, to reassess this patient's status. Reported by: BREEZY on 06/17/2025 2:02:00 PM. Reviewed, dictated and finalized at location A.
--- NOTE | ~2025-06-17 | MM_ITS ---
EXAMINATION: MM screening m[facility] BI w marcy HISTORY: Screening mammogram, family history of breast cancer in her mother and sister. TECHNIQUE: Craniocaudal and mediolateral oblique 3-D tomosynthesis images were obtained and synthetic 2-D images were generated. CAD analysis was submitted and interpreted. COMPARISON: 06/25/2018 BREAST PARENCHYMAL COMPOSITION:Not Dense. There are scattered areas of fibroglandular density. FINDINGS: No suspicious mass, calcification, or architectural distortion are identified in either breast to suggest malignancy. There has been no suspicious interval change. IMPRESSION: No mammographic evidence of malignancy. Recommend routine screening mammography in one year. BI-RADS Category 1: Negative Reviewed, dictated and finalized at location .
== END 2025-06-17 13:04 | disposition home or self-care (01) ==
PROVIDERS: PCP Family Medicine; Visit Provider Family Medicine
DX: Z12.31 Encounter for screening mammogram for malignant neoplasm of breast (principal); Z78.0 Asymptomatic menopausal state
CPT/HCPCS: 77063; 77067; 77080